=== PATIENT | female | born 2000 ===

== ENCOUNTER → 2024-09-09 | Outpatient (CLI) | payer OTHER ==
[~2024-09-09] MED LIST: ACET325 PO; ALBU90OI INH; AMOX50SU PO; AMOXICILLIN SUSP PO; AZIT200SU PO; CODACEE120 PO; IBUP200 PO; ONDA4 PO; ONDA4ODT MM; RXONDA4ODT MM; TRIAOI IH
[2024-09-09 20:00] LABS: Bacterial Vaginosis PCR Negative (NEGATIVE); Candida Group, PCR NOT DETECTED (NOT DETECT); Candida glabrata-krusei, PCR NOT DETECTED (NOT DETECT)
== END | disposition home or self-care (01) ==
LOC: LAB SHORT 14:24 → LAB 14:24
PROVIDERS: Physician Assistant
DX: Z01.419 Encounter for gynecological examination (general) (routine) without abnormal findings (principal); B37.9 Candidiasis, unspecified
CPT/HCPCS: 81515

== ENCOUNTER 2025-04-13 09:47 | Day surgery (SDC) | payer OTHER ==
[~2025-04-13] VITALS: Ht 152.4 cm; Wt 78.0 kg
[~2025-04-13 09:47] MED LIST changes: +Lidocaine HCl 2% 10 ML SDA ONE
[2025-04-13] MEDS ORDERED: CeFAZolin Sodium 2,000 MG VIAL ONE (11:58)
[2025-04-13] MEDS ORDERED: AMOCLA250S PO (12:06)
[2025-04-13] MEDS ORDERED: ALLEGRA ALLERG180 MG PO (12:07)
[2025-04-13] MEDS ORDERED: ESCI20 PO (12:08)
[2025-04-13] MEDS ORDERED: TOPIRAMATE ER25 M1 PO (12:08)
[2025-04-13] MEDS ORDERED: ALBU2.5V5 INH (12:09)
[2025-04-13] MEDS ORDERED: Ipratropium/Albuterol SulF 2.5-0.5MG/3 ML Amp ONE (13:01)
[2025-04-13] MEDS ORDERED: FentaNYL Citrate 50 MCG/ML 2 ML Injection ONE ×2 (13:05→14:16)
[2025-04-13] MEDS ORDERED: Dexamethasone Sod Phos 10 MG/ML 1ML VIAL ONE (13:20)
[2025-04-13] MEDS ORDERED: Ondansetron HCl 2 MG / ML 2ML Vial ONE (13:20)
--- NOTE | 2025-04-13 13:55 | NUR ---
04/13/25 4230 Michelle Bush REPORT FROM RN AND LIZBETH. LEFT FINGERS PINK, DRY, WARM. LEFT FINGERS CAP REFILL <2 SECONDS. OA IN PLACE UPON ARRIVAL TO PACU. PT ASLEEP. VSS.
--- NOTE | 2025-04-13 14:23 | NUR ---
04/13/25 1423 Michelle Bush ICE PACK APPLIED
[2025-04-13 14:39] VITALS: BP 117/76
[2025-04-13] MEDS ORDERED: HYDROcodone 5-APAP 325 TAB ONE (14:46)
== END 2025-04-13 15:33 | disposition home or self-care (01) ==
LOC: ORSCSDS 09:47
PROVIDERS: Orthopaedic Surgery
PROC: 0LN80ZZ Release Left Hand Tendon, Open Approach (ICD-10-PCS; principal; 2025-04-13 12:30)
DX: M65.142 Other infective (teno)synovitis, left hand (principal); S61.452A Open bite of left hand, initial encounter; W55.01XA Bitten by cat, initial encounter; J45.909 Unspecified asthma, uncomplicated; L40.0 Psoriasis vulgaris; E66.9 Obesity, unspecified; Z68.33 Body mass index [BMI] 33.0-33.9, adult; Z79.899 Other long term (current) drug therapy
CPT/HCPCS: 88304; A9270; J0690; J1100; J2003; J2405; J2704; J3010; J7120